=== PATIENT | male | born 1935 | race Caucasian/White ===

== ENCOUNTER 2020-07-26 03:26 | Emergency (ER) | payer MEDICARE, OTHER ==
[~2020-07-26] VITALS: Ht 172.7 cm; Wt 79.8 kg
[~2020-07-26 03:26] MED LIST: ACETAMINOPHEN500 MG PO; ADALAT CC60 MG PO; ADULT LOW DOSE81 MG PO; ALLOPURINOL100 MG PO; ATORVASTATIN CA40 MG PO; ATORVASTATIN CA80 MG PO; B-121000 MC2 PO; CARVEDILOL12.5 MG PO; D3 DOTS2000 UNIT PO; DOXYCYCLINE HY100 M3 PO; FINASTERIDE5 MG PO; FUROSEMIDE40 MG PO; HYDRALAZINE HCL10 MG PO; IRON325 M1 PO; ISORDIL TITRADOS5 MG PO; K-TAB10 MEQ PO; OMEPRAZOLE20 MG PO; ROCALTROL0.25 MCG PO; TOPROL XL50 MG PO; VITAMIN D325 MC2 PO; VITAMIN D325 MCG
--- NOTE | 2020-07-26 07:57 | EKG ---
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
== END 2020-07-26 05:47 | disposition left against medical advice (07) ==
LOC: ED 03:26
DX: R07.9 Chest pain, unspecified (principal); R20.2 Paresthesia of skin; I11.0 Hypertensive heart disease with heart failure; I50.9 Heart failure, unspecified; Z87.891 Personal history of nicotine dependence; Z88.0 Allergy status to penicillin; Z79.899 Other long term (current) drug therapy; Z79.82 Long term (current) use of aspirin
CPT/HCPCS: 71045; 80053; 83735; 84484; 85025; 93005; 93010; 99285-25

== ENCOUNTER 2021-08-26 16:49 | Emergency (ER) | payer MEDICARE ==
[~2021-08-26] VITALS: Ht 175.3 cm; Wt 79.8 kg
[2021-08-26] MEDS ORDERED: TORSEMIDE20 MG PO (17:52)
--- NOTE | 2021-08-26 17:52 | EKG ---
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
== END 2021-08-26 18:17 | disposition home or self-care (01) ==
LOC: ED 16:49
DX: I48.91 Unspecified atrial fibrillation (principal); I11.0 Hypertensive heart disease with heart failure; I50.9 Heart failure, unspecified; Z87.891 Personal history of nicotine dependence; Z88.0 Allergy status to penicillin; Z79.82 Long term (current) use of aspirin; Z79.899 Other long term (current) drug therapy
CPT/HCPCS: 36415; 71045; 83735; 84484; 85025; 93005; 93010; 99285-25